=== PATIENT | male | born 1935 | race Caucasian/White ===

== ENCOUNTER → 2017-01-05 | Outpatient (CLI) | payer OTHER | LOC: FIMAGING 11:45 | PROVIDERS: ATTEND Family Medicine | DX: R05 Cough (principal); R09.89 Other specified symptoms and signs involving the circulatory and respiratory systems ==

== ENCOUNTER → 2017-01-17 | Emergency (ER) | payer OTHER ==
[2017-01-17 15:30] VITALS: BP 148/83; PULSE 81; RESP 18; TEMP 98.1; O2SAT 92
--- NOTE | 2017-01-17 16:11 | EDPHY ---
H & P Smoking Status: Former smoker Time Seen by Provider: 01/17/17 15:41 HPI/ROS: This is an 81-year-old male patient presenting to the emergency department ambulatory with steady gait. Patient states 3-4 days ago he tripped over a step at home fell hitting the wall with his left arm. He states he did get up felt a dull ache in the left elbow and hand, but proceeded with normal activities. He states that he has been golfing without any problems, until today he did notice an increased pain in his elbow while golfing with some swelling. This is what brought him into the emergency department. 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 Is not on any form of blood thinner other than aspirin daily. Denies any LOC, no other injuries. REVIEW OF SYSTEMS: Constitutional: No fever no chills, no changes to appetite or ADLs. Golfing today ENT: No blurred vision Cardiac: No chest pain Musculoskeletal: Positive left elbow/hand pain Neurological: No headaches or dizziness (Piper Higginbotham) Physical Exam: CONSTITUTIONAL: patient appeared well nourished, non-ill appearing and normally developed. No acute distress. Vital signs as documented. HEENT: Normocephalic atraumatic PERRLA. NECK: Supple, no C-spine vertebral tenderness FROM without pain RESP: Non-labored resp effort NEURO: AAOx3, ambulatory with steady gait EXTREMITIES: Left 5th metacarpal and left elbow tenderness with ecchymosis and swelling. Scabbed abrasion noted to left elbow. FROM without pain or difficulty. No obvious deformity. Positive cms intact SKIN: Warm and dry PSYCH: Normal affect, pleasant, calm, no distress (Piper Higginbotham) Constitutional: Initial Vital Signs Temperature (C) 36.7 C 01/17/17 15:26 Heart Rate 81 01/17/17 15:26 Respiratory Rate 18 01/17/17 15:26 Blood Pressure 148/83 H 01/17/17 15:26 O2 Sat (%) 92 01/17/17 15:26 O2 Delivery Mode Room Air Allergies/Adverse Reactions: Sulfa (Sulfonamide Antibiotics) Allergy (Severe, Verified 08/09/16 12:34) Swelling/neck,face,throat Penicillins Allergy (Verified 08/09/16 12:34) Rash Home Medications: Medication Instructions Recorded Aspirin 81mg (*) 08/09/16 Herbals/Supplements -Info Only 08/09/16 Medical Decision Making - Diagnostics Imaging: X-ray hand, wrist, forearm, elbow shows a an avulsion fracture of the triceps tendon. It appears that the triceps tendon able cyst a bone fragment from the posterior elbow Ultrasound reviewed by me and discussed with Dr. Frzaier shows that most of the tendon has been torn and is retracted. The fracture appears to come from the central tendon. (Collin Hansen) Procedures: Placement patient is placed in a posterior long-arm splint. Then placed a sling. Post splint application shows good anatomic position and distal motor vascular sensitivity to be intact (Collin Hansen) ED Course/Re-evaluation: I also saw the patient in the emergency department. I reviewed the history frequent falls secondary to neuropathy. Trip and fall 5 days ago. Patient has pain around the elbow and especially hurts to press down. He also developed bruising of his arm today. Patient has been playing golf the last several days Physical exam shows extensive bruising from elbow to hand. No significant tenderness to palpation of the hand the wrist or the forearm. There is some posterior elbow tenderness. However he has full range of motion The x-ray shows probable avulsion fracture from the triceps tendon. Ultrasound is recommended. Ultrasound is ordered (Collin Hansen) 1815: [facility] intact re-evaluation status post splint application (Piper Higginbotham) Differential Diagnosis: Differential diagnosis considered but not limited to metacarpal fracture, forearm fracture an elbow dislocation (Piper Higginbotham) Departure - Departure Disposition: Home, Routine, Self-Care Clinical Impression: Tendon tear Condition: Good Instructions: Splint Care (ED) Additional Instructions: Discharge home---> stable, discussed discharge instructions with patient 1. I have spoken with Dr. Carlson, he he will see you in his office within the next 2-3 days for re-evaluation . Please call his office [phone]. 2. leave splint and sling on until evaluation with Dr. Carlson 3. you can use ice as needed 15 minutes several times daily to decrease swelling Referrals: Tasha Avila MD [Primary Care Provider] - As per Instructions
== END | disposition home or self-care (01) ==
DX: S51.012A Laceration without foreign body of left elbow, initial encounter (principal); Z87.891 Personal history of nicotine dependence; Z79.82 Long term (current) use of aspirin; W01.198A Fall on same level from slipping, tripping and stumbling with subsequent striking against other object, initial encounter; Y92.009 Unspecified place in unspecified non-institutional (private) residence as the place of occurrence of the external cause
CPT/HCPCS: 73080; 73090; 73110; 73130; 76882; 99284; A4565

== ENCOUNTER 2017-01-29 08:14 | Outpatient (CLI) | payer OTHER ==
[2017-01-29] MEDS ORDERED: FLUMAZENIL 0.5 MG/5 ML MDV IVP ONE (09:10)
[2017-01-29] MEDS ORDERED: NALOXONE HCL 0.4 MG/ML INJ ONE (09:11)
[2017-01-29] MEDS ORDERED: MIDAZOLAM 2 MG/2 ML VIAL ONE (09:11)
[2017-01-29] MEDS ORDERED: fentaNYL 100 MCG/2 ML INJ ONE (09:11)
== END 2017-01-29 11:25 | disposition home or self-care (01) ==
LOC: FIMAGING 08:14
PROVIDERS: ATTEND Orthopaedic Surgery Hand Surgery
DX: S46.312A Strain of muscle, fascia and tendon of triceps, left arm, initial encounter (principal); G56.22 Lesion of ulnar nerve, left upper limb; Z88.2 Allergy status to sulfonamides; I35.0 Nonrheumatic aortic (valve) stenosis; I35.1 Nonrheumatic aortic (valve) insufficiency; G60.9 Hereditary and idiopathic neuropathy, unspecified; G47.33 Obstructive sleep apnea (adult) (pediatric); G62.9 Polyneuropathy, unspecified; G47.30 Sleep apnea, unspecified; I51.9 Heart disease, unspecified
CPT/HCPCS: 73221; 93005; 99152; 99153; J2250; J3010; J2310

== ENCOUNTER → 2017-01-29 | Outpatient (CLI) | payer OTHER | LOC: BHFA 13:30 | PROVIDERS: ATTEND Internal Medicine | DX: I35.0 Nonrheumatic aortic (valve) stenosis (principal); I35.1 Nonrheumatic aortic (valve) insufficiency; G60.9 Hereditary and idiopathic neuropathy, unspecified; G47.33 Obstructive sleep apnea (adult) (pediatric); G62.9 Polyneuropathy, unspecified; G47.30 Sleep apnea, unspecified; I51.9 Heart disease, unspecified ==

== ENCOUNTER → 2017-02-08 | Outpatient (CLI) | payer OTHER | LOC: BHCLAF 14:00 | PROVIDERS: ATTEND Internal Medicine Cardiovascular Disease | DX: I35.1 Nonrheumatic aortic (valve) insufficiency (principal); I71.9 Aortic aneurysm of unspecified site, without rupture | CPT/HCPCS: 93306-PO ==

== ENCOUNTER → 2017-02-08 | Outpatient (CLI) | payer OTHER | LOC: BHFA 08:30 | PROVIDERS: ATTEND Internal Medicine Cardiovascular Disease | DX: I35.0 Nonrheumatic aortic (valve) stenosis (principal); I35.1 Nonrheumatic aortic (valve) insufficiency; I71.9 Aortic aneurysm of unspecified site, without rupture | CPT/HCPCS: 78452; 93017; 93306; A9500; J2785 ==

== ENCOUNTER → 2017-02-20 | Outpatient (CLI) | payer OTHER ==
[~2017-02-20] MED LIST: IOPAMIDOL (ISOVUE 370) 100 ML BTL IV ONE
[2017-02-20 12:17] LABS: GLOMERULAR FILTRATION RATE > 60
== END ==
LOC: FIMAGING 11:34
PROVIDERS: ATTEND Internal Medicine
DX: I71.2 Thoracic aortic aneurysm, without rupture (principal)
CPT/HCPCS: 71275; Q9967

== ENCOUNTER 2017-02-21 05:39 | Day surgery (SDC) | payer OTHER ==
[2017-02-21] MEDS ORDERED: LR 1,000 ML IV ONE (06:02)
[2017-02-21] MEDS ORDERED: LIDOCAINE 1% 5 ML SDV ID PRN (06:02)
[2017-02-21] MEDS ORDERED: BUPIVACAINE 0.5% 30 ML SDV ONE ×2 (06:53→07:15)
[2017-02-21] MEDS ORDERED: fentaNYL 100 MCG/2 ML INJ ONE ×3 (06:58→08:59)
[2017-02-21] MEDS ORDERED: PROPOFOL 200 MG/20 ML VIAL ONE ×2 (06:58)
[2017-02-21] MEDS ORDERED: ceFAZolin 2 GM/DEXTROSE 100 ML IV ONE (07:00)
[2017-02-21] MEDS ORDERED: MIDAZOLAM 2 MG/2 ML VIAL ONE (07:13)
[2017-02-21] MEDS ORDERED: DEXAMETHASONE 4 MG/ML VIAL ONE (07:15)
[2017-02-21] MEDS ORDERED: LIDOCAINE 1% 30 ML SDV ONE (07:15)
[2017-02-21] MEDS ORDERED: BACITRACIN 50,000 UNITS/10 ML SYR IRR ONE (07:16)
[2017-02-21] MEDS ORDERED: POLYMYXIN B SULFATE 500,000 UNIT/10 ML SYR IRR ONE (07:16)
[2017-02-21] MEDS ORDERED: OXYCODONE/APAP 5/325 TAB ONE (10:43)
[2017-02-21] MEDS ORDERED: PETROLAT,WHT/MIN OIL/SOD CHL 3.5 GM OPHT.OINT EACHEYE PRN (11:23)
--- NOTE | 2017-02-21 19:57 | GOP ---
[f rep st] OPERATIVE REPORT PATIENT: COSTA SPAIN DATE OF SERVICE: 02/21/17 PATIENT DATE OF : 1935 SURGEON: London Ardon M.D. KAIAWHINA: Gricel Garcia PA-C Mrs. Juan assistance was medically necessary for patient positioning and the retraction of vital structures. ANESTHESIA: General / regional anesthesia by surgeon PREOPERATIVE DIAGNOSES: Left triceps tendon rupture (ICD-10 code S46.309A triceps tendon rupture) Left olecranon avulsioin fracture (ICD-10 code S52.022A left olecranon fracture ) POSTOPERATIVE DIAGNOSES: Left triceps tendon rupture (ICD-10 code S46.309A triceps tendon rupture) Left olecranon avulsion fracture (ICD-10 code S52.022A left olecranon fracture) OPERATIVE PROCEDURES: CPT code 08691 -- Left triceps tendon repair CPT code 70613 -- Left triceps tenolysis CPT code 52674 -- Left elbow partial excision of olecranon process CPT code 68584 -- Left elbow olecranon bursa excision CPT code 17317 -- Left elbow cubital tunnel decompression CPT code 51944 -- Debridement of bone, first 20 square cm or less CPT code 21722 -- Fluoroscopy by surgeon, up to one hour CPT code 41234 Application of a long-arm splint Modifier 47 -- Regional anesthesia by surgeon ESTIMATED BLOOD LOSS: 4 cc COMPLICATIONS: None TOURNIQUET TIME: 88 minutes at 250 mm Hg IMPLANTS: Biomet 2.9mm Juggerknot suture anchor with #2 Maxxon sutures, Arthrex 4.74mm biocomposite swivel mami anchor with a #2 Fiber wire suture BRIEF CLINICAL NOTE: This is a very pleasant 81 year old male with a left elbow triceps tendon rupture. As such, I have discussed the risks, benefits, alternatives, and complications associated with both non-operative (specifically , observation, activity modifications) and operative (specifically, left elbow triceps tendon repair) forms of treatment. The patient fully understands the risks, benefits, alternatives, and complications associated with both forms of treatment and wishes to proceed with operative intervention as outlined above. The patient has signed the informed consent form for surgery. OPERATIVE NOTE: On the day of surgery, all of the patients questions were answered. The patient was then transferred from the pre-operative area into the operating room and a formal, Time-Out procedure was performed. The patient was identified by name, medical record number, social security number, and date of . In addition, the patients left upper extremity was identified as the correct portion of the patients body for surgery with the patients left elbow being identified as the correct portion of that extremity for surgery. The anesthesia team administered pre-operative antibiotics for prophylaxis. The patient was then transferred from the preoperative gurney onto the operating room table and placed in the prone position. The brachium was then padded with webril and a tourniquet was applied. The extremity was then prepped and draped in the normal sterile fashion. A sterile marking pen was then utilized to apolonia out a curvilinear incision overlying the posterior aspect of the olecranon and along the subcutaneous border of the ulna curving laterally around the tip of the olecranon process. Next, an Esmarch was then utilized to exsanguinate the upper extremity and the tourniquet was insufflated to 250 mmHg. A #15 blade was then used to incise through the skin. Meticulous hemostasis was obtained in the subcutaneous plane. Radial and ulnar full thickness skin flaps were then carefully elevated. The ulnar nerve was identified proximal to the cubital tunnel and was carefully traced distally. The ulnar nerve was then decompressed throughout the length of the cubital tunnel. The degenerated olecranon bursa was then excised to improve visualization. The torn edge of the triceps tendon was then identified and carefully debrided. In addition, the triceps was carefully released from surrounding scar tissue (tenolysis) to improve excursion. Several small pieces of the olecranon process were found attached to the torn edge of the triceps tendon. These small pieces of bone were carefully released from the triceps and excised as they were too small to repair. Next, the triceps tendon footprint on the olecranon process was sharply surgically debrided with a 4.0mm round maryjane back to the level of healthy bleeding bone. The barge pilot drill for the Biomet 2.9mm Juggerknot suture anchor was then utilized to drill a barge pilot hole in the olecranon process along the proximal aspect of the footprint. A 2.9mm Biomet juggerknot suture anchor was then inserted into the barge pilot hole and manually checked for pull-out strength. The #2 Maxxon sutures from the anchor were then passed through the torn edge of the triceps tendon with a modified Krackow stich. The torn edge of the triceps was then reduced to the footprint and the sutures were tied with the elbow at 30 degrees of flexion. Next, the punch for the 4.75mm Swivel Mami anchor was utilized to make a barge pilot hole along the distal edge of the triceps footprint. The suture tails from the JuggerKnot anchor were then passed through the tip of a 4.75mm biocomposite swivel mami anchor and the anchor was then preliminarily inserted into the barge pilot hole. Each of the four strands of suture were then sequentially tightened and the anchor was then inserted to set the tension permanently. The #2 Fiber Wire suture in the tip of the Swivel Mami anchor was then utilized to further reinforce the repair. The elbow was then gently brought through passive range of motion. All range of motion testing demonstrated excellent maintenance of the repair. PA and lateral c-arm images were obtained and demonstrated excellent implant positioning. These images were printed and saved. The entire wound was the copiously irrigated with sterile normal saline. The subcutaneous plane was re-approximated with 3-0 vicryl sutures and the skin was re-approximated with a running 4-0 monocryl subcuticular stitch. The skin was then cleaned and dried with sterile normal saline and dried. Dermabond was then applied to the incision. A mixture of 1% lidocaine and 0.5% Marcaine was utilized to perform a regional block of the operative site. A Xeroform gauze dressing was then applied followed by a dry sterile dressing and a long-arm splint maintaining the elbow in 30 degrees of flexion. Once the splint was completely in place, the tourniquet was deflated. After complete deflation of the tourniquet all fingers and the thumb demonstrated brisk capillary refill. The patient was then reversed from anesthesia and transferred from the operating room table to the postoperative gurney and transferred from the operating room to the post anesthesia care in stable condition. POSTOPERATIVE PLAN: The patient will remain in the current splint for the next 2 weeks. I will see the patient back in the office in 2 weeks at which point his original splint and dressing will be removed and the patient will be started on a course of gentle elbow ROM. /[id number]/MODL MTDD
== END 2017-02-21 13:35 | disposition home or self-care (01) ==
LOC: FSGY 05:39
PROVIDERS: ATTEND Orthopaedic Surgery Hand Surgery
PROC: 0MB40ZZ Excision of Left Elbow Bursa and Ligament, Open Approach (ICD-10-PCS; principal; 2017-02-21 07:15)
PROC: 0LN40ZZ Release Left Upper Arm Tendon, Open Approach (ICD-10-PCS; principal; 2017-02-21 07:15)
PROC: 01N40ZZ Release Ulnar Nerve, Open Approach (ICD-10-PCS; principal; 2017-02-21 07:15)
PROC: 0PBL0ZZ Excision of Left Ulna, Open Approach (ICD-10-PCS; principal; 2017-02-21 07:15)
PROC: 0LM40ZZ Reattachment of Left Upper Arm Tendon, Open Approach (ICD-10-PCS; principal; 2017-02-21 07:15)
DX: S46.312A Strain of muscle, fascia and tendon of triceps, left arm, initial encounter (principal); S52.022A Displaced fracture of olecranon process without intraarticular extension of left ulna, initial encounter for closed fracture; X58.XXXA Exposure to other specified factors, initial encounter; Y92.9 Unspecified place or not applicable
CPT/HCPCS: C1713; J0690; J1100; J2250; J2704; J3010

== ENCOUNTER → 2017-05-27 | Outpatient (CLI) | payer OTHER ==
[~2017-05-27] MED LIST changes: +FLUMAZENIL 0.5 MG/5 ML MDV IVP ONE; -IOPAMIDOL (ISOVUE 370) 100 ML BTL IV ONE; +MIDAZOLAM 2 MG/2 ML VIAL ONE; +NS 1,000 ML IV SCH; +ONDANSETRON 4 MG/2 ML VIAL IVP PRN; +fentaNYL 100 MCG/2 ML INJ ONE
== END ==
LOC: FIMAGING 14:03
PROVIDERS: ATTEND Physician Assistant
DX: M51.36 Other intervertebral disc degeneration, lumbar region (principal); M48.06 Spinal stenosis, lumbar region
CPT/HCPCS: 72148; 99152; J2250; J3010

== ENCOUNTER → 2018-01-16 | Emergency (ER) | payer OTHER | END | disposition left against medical advice (07) | DX: Z53.21 Procedure and treatment not carried out due to patient leaving prior to being seen by health care provider (principal) ==